=== PATIENT | male | born 1970 | race Caucasian/White ===

== ENCOUNTER → 2018-04-28 | Outpatient (CLI) | payer OTHER ==
[~2018-04-28] MED LIST: LEVO100T5 PO
== END | disposition home or self-care (01) ==
LOC: CFH 15:04
PROVIDERS: ATTEND Physical Medicine & Rehabilitation
DX: M99.04 Segmental and somatic dysfunction of sacral region (principal); G95.89 Other specified diseases of spinal cord; M48.08 Spinal stenosis, sacral and sacrococcygeal region
CPT/HCPCS: 72202

== ENCOUNTER 2019-07-14 14:27 | Emergency (ER) | payer OTHER ==
[~2019-07-14] VITALS: Ht 182.9 cm; Wt 79.7 kg
[~2019-07-14 14:27] MED LIST changes: +CHOL500045 PO; +DULO60CA7 PO; +ENOX80SY4 SQ; +LISI-170 PO; +RIVA15TA PO; +RIVA20TA PO
[2019-07-14 14:34] VITALS: BP 134/91
[2019-07-14] MEDS ORDERED: WARF5TAB PO (14:48)
== END 2019-07-14 15:36 | disposition home or self-care (01) ==
LOC: ED 15:15
DX: M70.21 Olecranon bursitis, right elbow (principal); I10 Essential (primary) hypertension; E03.9 Hypothyroidism, unspecified; Z86.718 Personal history of other venous thrombosis and embolism
CPT/HCPCS: 99282

== ENCOUNTER → 2020-02-20 | Outpatient (CLI) | payer OTHER ==
[~2020-02-20] MED LIST changes: +CELE100C PO; +VALA10004 PO; +WARF5TAB2 PO
[2020-02-20 09:36] LABS: ALANINE AMINOTRANSFERASE 23 U/L (12-78); ALBUMIN 3.6 g/dL (3.4-5.0); ANION GAP 3 mmol/L (5-15); CALCIUM 8.5 mg/dL (8.5-10.1); CHLORIDE 110 mmol/L (98-107); CREATININE 0.98 mg/dL (0.7-1.3)
[2020-02-20 09:38] LABS: ALKALINE PHOSPHATASE 63 U/L (45-117); BILIRUBIN,TOTAL 0.4 mg/dL (0.2-1.0); TOTAL PROTEIN 7.2 g/dL (6.4-8.2)
== END | disposition home or self-care (01) ==
LOC: STAR 08:13
PROVIDERS: ATTEND Orthopaedic Surgery
DX: Z01.812 Encounter for preprocedural laboratory examination (principal); M25.521 Pain in right elbow; M19.021 Primary osteoarthritis, right elbow; Z20.828 Contact with and (suspected) exposure to other viral communicable diseases
CPT/HCPCS: 80053; 87635

== ENCOUNTER 2020-02-26 13:12 | Day surgery (SDC) | payer OTHER ==
[~2020-02-26] VITALS: Ht 182.9 cm; Wt 81.0 kg
[2020-02-26] MEDS ORDERED: CHLORHEXIDINE 15 ML UDC MM ONE (13:23)
[2020-02-26] MEDS ORDERED: LACTATED RINGERS 1,000 ML IV SCH (13:30)
[2020-02-26] MEDS ORDERED: CHLORHEXIDINE 15 ML UDC ONE (13:33)
[2020-02-26 13:54] VITALS: BP 125/84
[2020-02-26] MEDS ORDERED: BUPIVACAINE/PF 0.25% ONE (14:37)
[2020-02-26] MEDS ORDERED: EPINEPHRINE 1 MG/ML, 1ML ONE (14:37)
[2020-02-26] MEDS ORDERED: MIDAZOLAM 1 MG/ML, 2ML ONE (15:24)
[2020-02-26] MEDS ORDERED: FENTANYL PF 100 MCG/2ML ONE ×2 (15:24→16:40)
[2020-02-26] MEDS ORDERED: PROPOFOL 10 MG/ML, 20ML ONE (15:26)
[2020-02-26] MEDS ORDERED: SUCCINYLCHOLINE 20 MG/ML, 10ML ONE (15:26)
[2020-02-26] MEDS ORDERED: CEFAZOLIN 1,000 MG ONE (15:26)
[2020-02-26] MEDS ORDERED: ONDANSETRON 2MG/ML, 2ML ONE (15:26)
[2020-02-26] MEDS ORDERED: DIPHENHYDRAMINE 50 MG/ML, 1ML IVPush PRN (16:00)
[2020-02-26] MEDS ORDERED: ACETAMINOPHEN 325 MG TABLET PO PRN (16:00)
[2020-02-26] MEDS ORDERED: PROMETHAZINE 25 MG/ML, 1ML IVPush PRN (16:00)
[2020-02-26] MEDS ORDERED: KETOROLAC 30 MG/1 ML IVPush PRN (16:00)
[2020-02-26] MEDS ORDERED: ONDANSETRON 2MG/ML, 2ML IVPush PRN (16:00)
[2020-02-26] MEDS ORDERED: HYDROmorphone 1 MG/ML, 1ML INJ IVPush PRN (16:00)
[2020-02-26] MEDS ORDERED: LABETALOL 5MG/ML, 20ML IV PRN (16:00)
[2020-02-26] MEDS ORDERED: FENTANYL PF 100 MCG/2ML IV PRN (16:00)
[2020-02-26] MEDS ORDERED: OXYcodone 5 MG/5 ML ORAL.SOL UDC PO PRN (16:00)
[2020-02-26] MEDS ORDERED: hydrALAzine 20 MG/ML, 1ML IV PRN (16:00)
[2020-02-26] MEDS ORDERED: MEPERIDINE/PF 25MG/0.5ML IVPush PRN (16:00)
[2020-02-26] MEDS ORDERED: DIAZEPAM 5 MG/ML, 2ML IVPush PRN (16:00)
[2020-02-26] MEDS ORDERED: ACETAMINOPHEN 650 MG/20.3 ML UDC ONE ×2 (16:39→16:59)
[2020-02-26] MEDS ORDERED: OXYcodone 5 MG/5 ML ORAL.SOL UDC ONE (16:40)
== END 2020-02-26 18:30 | disposition home or self-care (01) ==
LOC: OUT 13:12
PROVIDERS: ATTEND Orthopaedic Surgery
DX: M25.521 Pain in right elbow (principal); M77.11 Lateral epicondylitis, right elbow; M19.021 Primary osteoarthritis, right elbow; M24.021 Loose body in right elbow; M25.662 Stiffness of left knee, not elsewhere classified; M70.21 Olecranon bursitis, right elbow; I10 Essential (primary) hypertension; F17.210 Nicotine dependence, cigarettes, uncomplicated; Z79.899 Other long term (current) drug therapy; Z72.89 Other problems related to lifestyle; Z98.890 Other specified postprocedural states
CPT/HCPCS: 29834; 29837; J0171; J0330; J0690; J2250; J2405; J2704; J7120; J3010

== ENCOUNTER → 2020-04-29 | Outpatient (CLI) | payer OTHER | END | disposition home or self-care (01) | LOC: CFH 13:30 | PROVIDERS: ATTEND Internal Medicine | DX: Z12.2 Encounter for screening for malignant neoplasm of respiratory organs (principal); F17.210 Nicotine dependence, cigarettes, uncomplicated | CPT/HCPCS: 71271 ==